=== PATIENT | male | born 1965 | race Two or more races ===

== ENCOUNTER 2022-10-18 01:47 | Emergency (ER) | payer BC ==
[~2022-10-18] VITALS: Ht 180.3 cm; Wt 83.9 kg
[2022-10-18] MEDS ORDERED: ZOFRAN8 MG PO (06:13)
[2022-10-18] MEDS ORDERED: PEPCID40 MG PO (06:13)
== END 2022-10-18 06:23 ==
LOC: ER 01:47
DX: R10.13 Epigastric pain (principal)